=== PATIENT | male | born 1995 | race American Indian/Alaskan Native ===

== ENCOUNTER 2022-01-23 14:38 | Emergency (ER) | payer SELFPAY ==
--- NOTE | 2022-01-23 18:18 | XRay Report ---
LEFT FOREARM 2 VIEW(S) INDICATION / CLINICAL INFORMATION: PAIN SP FALL COMPARISON: None available. FINDINGS: BONES / JOINT(S): No acute fracture or subluxation. No significant arthritis. SOFT TISSUES: No significant abnormality. ADDITIONAL FINDINGS: None. IMPRESSION: 1. No acute findings. LEFT WRIST 3 VIEW(S) INDICATION / CLINICAL INFORMATION: PAIN SP FALL COMPARISON: None available. FINDINGS: BONES / JOINT(S): Acute fracture of the distal scaphoid that appears mildly displaced by a few millim eters. Please see the saved bernard image on [employer] PACS. No other acute fracture or dislocation. No significant arthritis. SOFT TISSUES: No significant abnormality. ADDITIONAL FINDINGS: None. IMPRESSION: 1. Acute, mildly displaced, distal scaphoid fracture. Signer Name: Mark Ochoa MD Signed: 01/23/2022 6:13 PM Workstation Name: [email or web address]
--- NOTE | 2022-01-23 18:18 | XRay Report ---
LEFT FOREARM 2 VIEW(S) INDICATION / CLINICAL INFORMATION: PAIN SP FALL COMPARISON: None available. FINDINGS: BONES / JOINT(S): No acute fracture or subluxation. No significant arthritis. SOFT TISSUES: No significant abnormality. ADDITIONAL FINDINGS: None. IMPRESSION: 1. No acute findings. LEFT WRIST 3 VIEW(S) INDICATION / CLINICAL INFORMATION: PAIN SP FALL COMPARISON: None available. FINDINGS: BONES / JOINT(S): Acute fracture of the distal scaphoid that appears mildly displaced by a few millim eters. Please see the saved bernard image on [employer] PACS. No other acute fracture or dislocation. No significant arthritis. SOFT TISSUES: No significant abnormality. ADDITIONAL FINDINGS: None. IMPRESSION: 1. Acute, mildly displaced, distal scaphoid fracture. Signer Name: Mark Ochoa MD Signed: 01/23/2022 6:13 PM Workstation Name: [employer]
[2022-01-23] MEDS ORDERED: MORPHINE 4 MG/1 ML INJ IM ONE (20:16)
[2022-01-23] MEDS ORDERED: ONDANSETRON 4 MG ODT TAB PO ONE (20:16)
[2022-01-23] MEDS ORDERED: IBUPROFEN 800 MG TAB PO ONE (20:17)
--- NOTE | 2022-01-23 20:25 | Emergency Department Report ---
ED Upper Extremity Inj HPI - General Chief Complaint: Extremity Injury, Upper Stated Complaint: LEFT ARM BROKE Time Seen by Provider: 01/23/22 20:03 Source: patient Mode of arrival: Ambulatory Limitations: No Limitations - History of Present Illness Initial Comments: 26-year-old male presents with left ankle fracture. Patient reports he fell about a week ago, and was told he injured his hand and needs to follow-up. Has since not followed up, complaining of worsening pain in the left wrist, patient is left-handed and has had difficulty performing a lot of his activities. He denies weakness numbness or tingling in his extremity, no chest pain, no shortness of breath, no weakness, no paresthesia, no paralysis, no vision changes, no history of prior fractures or dislocations. He denies new injury, denies head neck or back injury. Pain in the left wrist, radiates to his forearm MD Complaint: Injury to:: left -: week(s) Other Extremity Injury: Wrist: Left Other Injuries: none Handedness: left Severity scale (0 -10): 10 Improves With: rest Worsens With: movement of extremity Context: fall Associated Symptoms: denies: denies other symptoms, weakness, neck pain, suspects foreign body, nausea/vomiting, heard/felt popping sensat - Related Data Previous Rx's Medication Instructions Recorded Last Taken Type Ibuprofen [Motrin 800 MG tab] 800 mg PO ONCE PRN #30 tablet 01/23/22 Unknown Rx traMADoL [Ultram 50 MG tab] 50 mg PO Q4HR PRN #12 tablet 01/23/22 Unknown Rx Allergies Allergy/AdvReac Type Severity Reaction Status Date / Time No Known Allergies Allergy Verified 01/23/22 16:43 ED Review of Systems ROS: Stated complaint: LEFT ARM BROKE Other details as noted in HPI Comment: All other systems reviewed and negative Constitutional: no symptoms reported ENT: as per HPI Respiratory: no symptoms reported Cardiovascular: as per HPI Endocrine: no symptoms reported Gastrointestinal: denies: abdominal pain, nausea, vomiting Genitourinary: as per HPI Musculoskeletal: joint swelling, arthralgia. denies: back pain, myalgia Skin: as per HPI, change in color Neurological: denies: headache, weakness, numbness, paresthesias Psychiatric: as per HPI ED Past Medical Hx - Medications Home Medications: Home Medications Medication Instructions Recorded Confirmed Last Taken Type Ibuprofen [Motrin 800 MG tab] 800 mg PO ONCE PRN #30 tablet 01/23/22 Unknown Rx traMADoL [Ultram 50 MG tab] 50 mg PO Q4HR PRN #12 tablet 01/23/22 Unknown Rx ED Physical Exam - General Limitations: No Limitations General appearance: alert, in no apparent distress - Head Head exam: Present: atraumatic - ENT ENT exam: Present: normal exam - Neck Neck exam: Present: normal inspection. Absent: tenderness - Respiratory Respiratory exam: Present: normal lung sounds bilaterally - Cardiovascular Cardiovascular Exam: Present: regular rate, normal rhythm - GI/Abdominal GI/Abdominal exam: Present: soft - Extremities Exam Extremities exam: Present: normal inspection, tenderness, joint swelling. Absent: full ROM - Expanded Upper Extremity Exam Left General: Absent: normal inspection Forearm Wrist exam: Present: tenderness, swelling, tenderness over anatomical snuff box. Absent: normal inspection, full ROM, ecchymosis, deformity, dislocation Hand Wrist exam: Present: tenderness, swelling Hand L/R Front: 1 - Positive: other (ttp, swelling) Hand L/R Back: 1 - Swelling, tender on palpation, no deformity. Cap refill sensation intact, intact dexterity, and is able to flex and extend his fingers. Radial and ulnar pulses are palpable Neuro motor exam: Present: wrist extension intact, thumb opposition intact, thumb IP flexion intact, thumb adduction intact, fingers 2-5 abduction intact Neurosensory exam: Present: 2-point discrimination Vascular: Present: normal capillary refill, radial pulse. Absent: vascular comp romise, pulse deficit radial art - Back Exam Back exam: Present: normal inspection, full ROM. Absent: tenderness - Neurological Exam Neurological exam: Present: alert, oriented X3 - Skin Skin exam: Present: warm, dry, normal color. Absent: ecchymosis ED Course Vital Signs 01/23/22 16:41 Temperature 98.9 F Pulse Rate 74 Respiratory 18 Rate Blood Pressure 140/97 [Right] O2 Sat by Pulse 100 Oximetry ED Medical Decision Making - Radiology Data Mildly displaced scaphoid fracture left - Medical Decision Making 1 week old injury secondary to a fall, x-rays positive for "mild displaced scaphoid fracture of the left wrist. 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 Discharged home with a thumb spica splint which was placed by nursing staff, cap refill sensation is intact, patient reports significant improvement of his pain with splinting and pain management. Discharge home with tramadol, orthopedic referral, ibuprofen, ice and activity modification. Patient remained stable nontoxic-appearing, afebrile, ambulating steadily without assistance. Gone over ED findings with patient as well as plan for follow-up. Also discussed return precautions with patient, all questions and concerns addressed. Patient is stable to be discharged follow-up outpatient. Audio voice dictation device used, hence the chart might contain some dictation errors, mispronunciations, wrong spelling and wrong verbiage. Critical care attestation.: If time is entered above; I have spent that time in minutes in the direct care of this critically ill patient, excluding procedure time. ED Disposition Clinical Impression: Scaphoid fracture, wrist, closed Disposition: 01 HOME / SELF CARE / HOMELESS Is pt being admited?: No Does the pt Need Aspirin: No Condition: Stable Instructions: Wrist Fracture Treated With Immobilization, [id number], Scaphoid Fracture Prescriptions: Ibuprofen [Motrin 800 MG tab] 800 mg PO ONCE PRN #30 tablet PRN Reason: Pain , Severe (7-10) traMADoL [Ultram 50 MG tab] 50 mg PO Q4HR PRN #12 tablet PRN Reason: Pain Referrals: CYDNEY RUBIO MD [Staff Physician] - 3-5 Days Forms: Work/School Release Form(ED)
[2022-01-23 23:31] VITALS: BP 136/82
== END 2022-01-23 23:31 | disposition home or self-care (01) ==
LOC: ED 14:38
DX: S62.002A Unspecified fracture of navicular [scaphoid] bone of left wrist, initial encounter for closed fracture (principal); Z79.899 Other long term (current) drug therapy; V86.56XA Driver of dirt bike or motor/cross bike injured in nontraffic accident, initial encounter; Y92.89 Other specified places as the place of occurrence of the external cause; Y92.488 Other paved roadways as the place of occurrence of the external cause; Y99.8 Other external cause status
CPT/HCPCS: 29125; 73090; 73110; 96372; 99283; J2270; J3490; Q0162